=== PATIENT | female | born 1955 | race Caucasian/White ===

== ENCOUNTER 2016-10-08 21:01 | Emergency (ER) | payer MEDICARE, OTHER ==
[~2016-10-08 21:01] MED LIST: AUGMENTIN875 MG PO; DOXYCYCLINE HY100 M2 PO; IBUPROFEN800 MG PO; KLONOPIN2 MG PO; NITROQUIK SL0.4 MG PO; PAXIL20 MG PO; PHENERGAN25 M1 PO; PRAVACHOL40 MG PO; PROTONIX40 MG PO; VITAMIN B-12500 MCG PO; VITAMIN D250000 UNIT PO; WELLBUTRIN XL300 MG PO; ZESTRIL5 MG PO
[2016-10-08 21:51] LABS: BILIRUBIN NEGATIVE (NEGATIVE); BLOOD 3+ Ery/uL (NEGATIVE); CLARITY CLEAR (CLEAR); COLOR YELLOW (YELLOW); GLUCOSE (U) NORMAL (NORMAL); KETONE (U) NEGATIVE (NEGATIVE); LEUKOCYTES 3+ Leu/uL (NEGATIVE); NITRITE POSITIVE (NEGATIVE); PROTEIN 2+ mg/dL (NEGATIVE); UROBILINOGEN 0.2 mg/dL (0.2-1.0)
[2016-10-08 21:56] LABS: BACTERIA 2+
== END 2016-10-08 23:20 | disposition home or self-care (01) ==
LOC: FER 21:01
PROVIDERS: Nurse Practitioner
DX: N39.0 Urinary tract infection, site not specified (principal); R31.9 Hematuria, unspecified; I10 Essential (primary) hypertension; Z88.2 Allergy status to sulfonamides; Z88.5 Allergy status to narcotic agent; Z88.6 Allergy status to analgesic agent; Z88.8 Allergy status to other drugs, medicaments and biological substances; Z87.440 Personal history of urinary (tract) infections; Z90.49 Acquired absence of other specified parts of digestive tract; Z90.710 Acquired absence of both cervix and uterus; Z79.899 Other long term (current) drug therapy
CPT/HCPCS: 81001; 87076; 87088; 87186; J1885

== ENCOUNTER 2020-09-14 01:46 | Day surgery (SDCO) | payer MEDICARE, OTHER ==
[~2020-09-14] VITALS: Ht 165.1 cm; Wt 108.5 kg
[~2020-09-14 01:46] MED LIST changes: +AZITHROMYCIN250 MG PO; +BROMFED DM COU473 ML PO; +CYCLOBENZAPRINE10 MG PO; +IBUPROFEN400 M1 PO; +LOSARTAN POTASS50 MG PO; +PAROXETINE 20MG20 MG PO; +PRAVASTATIN SOD40 MG PO; +PREDNISONE 20MG20 MG PO; +PROMETHAZINE-D118 ML PO; +SPIRIVA18 MCG INH; +ULTRA-LIGHT RO1 EACH XX
[2020-09-14 02:34] LABS: BILIRUBIN NEGATIVE (NEGATIVE); BLOOD 1+ Ery/uL (NEGATIVE); CLARITY CLEAR (CLEAR); COLOR YELLOW (YELLOW); GLUCOSE (U) NORMAL (NORMAL); LEUKOCYTES NEGATIVE Leu/uL (NEGATIVE); NITRITE NEGATIVE (NEGATIVE); PROTEIN TRACE (LOW) mg/dL (NEGATIVE); SPECIFIC GRAVITY 1.015 (1.001-1.030); UROBILINOGEN 0.2 mg/dL (0.2-1.0); pH 7.5 (5.0-9.0)
[2020-09-14 02:39] LABS: PROTHROMBIN TIME 12.5 SECONDS (11.4-13.6); PTT 29.2 SECONDS (22.2-34.7)
[2020-09-14 02:40] LABS: D-DIMER 0.6 ug/mLFEU (0.00-0.41)
[2020-09-14 02:42] LABS: BACTERIA TRACE
[2020-09-14 02:53] LABS: ALBUMIN 3.5 g/dL (3.4-5.0); BILIRUBIN - TOTAL 0.3 mg/dL (0.2-1.0); BUN/CREAT RATIO (CALC) 12.8 RATIO; CREATININE 0.78 mg/dL (0.51-0.95); FT4 (FREE T4) 0.8 ng/dL (0.76-1.46); GLOBULIN (CALCULATION) 3.9 g/dL; POTASSIUM 4.1 mmol/L (3.5-5.1); TOTAL PROTEIN 7.4 g/dL (6.4-8.2)
[2020-09-14 02:54] LABS: BASOPHIL 0.2 % (0-2); EOSINOPHIL 0.1 % (0-5); HCT 36.9 % (37.0-47.0); HGB 12.2 g/dl (12.5-16.0); LYMPHOCYTE 10.4 % (15-48); MCH 29.1 pg (25.0-31.0); MCHC 33.1 g/dL (32.0-36.0); MCV 88.1 fL (78.0-100.0); MONOCYTE 3.5 % (0-12); MPV 10.5 fL (6.0-9.5); NEUTROPHIL 84.9 % (41-80); NRBC 0; PLT 290 K/uL (150-400); RBC 4.19 M/uL (4.20-5.40); RDW 12.9 % (11.5-14.0); WBC 12.1 K/uL (4.0-10.5)
[2020-09-14 02:55] LABS: PRO-BNP 122 pg/mL (<125)
[2020-09-14 06:11] LABS: CORONAVIRUS 2019 SARS-COV-2 NEGATIVE (NEGATIVE); INFLUENZA A NAA NEGATIVE (NEGATIVE)
[2020-09-14] MEDS ORDERED: COZAAR50 MG PO (06:42)
[2020-09-14] MEDS ORDERED: NORVASC5 MG PO (06:42)
[2020-09-14] MEDS ORDERED: ARICEPT 5MG TABL5 MG PO (06:44)
[2020-09-14] MEDS ORDERED: ANORO ELLIPTA1 EACH INH (06:44)
[2020-09-14] MEDS ORDERED: CLONAZEPAM2 MG PO (06:46)
[2020-09-14] MEDS ORDERED: PRAVASTATIN SOD10 MG PO (06:47)
[2020-09-14] MEDS ORDERED: PROTONIX 40MG T40 MG PO (06:47)
[2020-09-14] MEDS ORDERED: SINGULAIR10 MG PO (06:48)
[2020-09-14] MEDS ORDERED: ZOLOFT50 MG PO (06:48)
[2020-09-14] MEDS ORDERED: WELLBUTRIN XL150 MG PO (06:48)
[2020-09-14] MEDS ORDERED: VENTOLIN HFA IN18 GM INH (06:49)
[2020-09-14] MEDS ORDERED: CENTRUM SILVER1 EAC1 PO (06:50)
[2020-09-14] MEDS ORDERED: VITAMIN D350 MC3 PO (06:52)
--- NOTE | 2020-09-15 00:11 | NUR ---
AT 2318 CARDIZEM DRIP STOPPED. PT HR 58 AND SINUS RHYTHM BP 109/58. MD ALIZA ELDER NOTIFIED OF VITAL SIGNS AND ORDERED TO STOP DRIP AT THIS TIME.
[2020-09-15 04:26] LABS: BASOPHIL 0.3 % (0-2); EOSINOPHIL 0 % (0-5); HCT 33.3 % (37.0-47.0); HGB 10.8 g/dl (12.5-16.0); LYMPHOCYTE 11.9 % (15-48); MCH 28.7 pg (25.0-31.0); MCHC 32.4 g/dL (32.0-36.0); MCV 88.6 fL (78.0-100.0); MONOCYTE 4.7 % (0-12); MPV 10.3 fL (6.0-9.5); NEUTROPHIL 82.3 % (41-80); NRBC 0; PLT 266 K/uL (150-400); RBC 3.76 M/uL (4.20-5.40); RDW 13.2 % (11.5-14.0); WBC 14.9 K/uL (4.0-10.5)
[2020-09-15 04:43] LABS: ALBUMIN 3.2 g/dL (3.4-5.0); BILIRUBIN - TOTAL 0.3 mg/dL (0.2-1.0); BUN/CREAT RATIO (CALC) 26.9 RATIO; CREATININE 0.67 mg/dL (0.51-0.95); GLOBULIN (CALCULATION) 3.4 g/dL; POTASSIUM 4.5 mmol/L (3.5-5.1); TOTAL PROTEIN 6.6 g/dL (6.4-8.2)
[2020-09-15 04:58] LABS: CKMB 1.4 ng/mL (0.0-3.6)
[2020-09-15] MEDS ORDERED: PREDNISONE 20MG20 MG PO (09:43)
[2020-09-15] MEDS ORDERED: LOPRESSOR25 MG PO (09:44)
[2020-09-15] MEDS ORDERED: ELIQUIS5 MG PO (09:44)
== END 2020-09-15 11:20 | disposition home or self-care (01) ==
LOC: FER 01:46 → FTCU 05:26
PROVIDERS: Emergency Medicine Emergency Medical Services; Nurse Practitioner; ADMIT Hospitalist
DX: I48.91 Unspecified atrial fibrillation (principal); J44.1 Chronic obstructive pulmonary disease with (acute) exacerbation; I10 Essential (primary) hypertension; G47.30 Sleep apnea, unspecified; E78.5 Hyperlipidemia, unspecified; F41.9 Anxiety disorder, unspecified; E03.9 Hypothyroidism, unspecified; M79.89 Other specified soft tissue disorders; Z99.89 Dependence on other enabling machines and devices; Z87.891 Personal history of nicotine dependence; Z91.041 Radiographic dye allergy status; Z88.5 Allergy status to narcotic agent; Z88.2 Allergy status to sulfonamides; Z88.6 Allergy status to analgesic agent; Z79.899 Other long term (current) drug therapy; Z20.822 Contact with and (suspected) exposure to COVID-19
CPT/HCPCS: 36415; 71045; 80053; 81001; 82553; 83036; 83735; 83880; 84439; 84443; 84484; 85025; 85379; 85610; 85730; 93005; 93970; 94010; 94640; 94762; G0378; J3475; J7512; U0002

== ENCOUNTER 2021-05-17 18:47 | Emergency (ER) | payer MEDICARE, OTHER ==
[~2021-05-17 18:47] MED LIST changes: +ANORO ELLIPTA1 EACH INH; +ARICEPT 5MG TABL5 MG PO; +CENTRUM SILVER1 EAC1 PO; +CLONAZEPAM2 MG PO; +COZAAR50 MG PO; +ELIQUIS5 MG PO; +LOPRESSOR25 MG PO; +NORVASC5 MG PO; +PRAVASTATIN SOD10 MG PO; +PROTONIX 40MG T40 MG PO; +SINGULAIR10 MG PO; +VENTOLIN HFA IN18 GM INH; +VITAMIN D350 MC3 PO; +WELLBUTRIN XL150 MG PO; +ZOLOFT50 MG PO
[2021-05-17 19:56] LABS: BASOPHIL 0.6 % (0-2); EOSINOPHIL 3.5 % (0-5); HCT 34.8 % (37.0-47.0); HGB 11.7 g/dl (12.5-16.0); LYMPHOCYTE 31.1 % (15-48); MCH 28.8 pg (25.0-31.0); MCHC 33.6 g/dL (32.0-36.0); MCV 85.7 fL (78.0-100.0); MONOCYTE 7.8 % (0-12); NEUTROPHIL 56.8 % (41-80); NRBC 0; PLT 306 K/uL (150-400); RBC 4.06 M/uL (4.20-5.40); RDW 13.4 % (11.5-14.0); WBC 10.5 K/uL (4.0-10.5)
[2021-05-17 20:08] LABS: INR 1.15 (0.9-1.2); PROTHROMBIN TIME 14.1 SECONDS (11.8-13.4); PTT 32.4 SECONDS (24.4-34.7)
[2021-05-17 20:30] LABS: ALBUMIN 3.5 g/dL (3.4-5.0); BILIRUBIN - TOTAL 0.3 mg/dL (0.2-1.0); BUN/CREAT RATIO (CALC) 18.4 RATIO; CREATININE 0.76 mg/dL (0.51-0.95); GLOBULIN (CALCULATION) 3.5 g/dL; POTASSIUM 3.2 mmol/L (3.5-5.1)
[2021-05-17 20:32] LABS: LACTIC ACID 1.7 mmol/L (0.4-1.9)
[2021-05-17 20:38] LABS: BILIRUBIN NEGATIVE (NEGATIVE); BLOOD 1+ Ery/uL (NEGATIVE); CLARITY CLEAR (CLEAR); COLOR YELLOW (YELLOW); GLUCOSE (U) NORMAL (NORMAL); LEUKOCYTES NEGATIVE Leu/uL (NEGATIVE); NITRITE NEGATIVE (NEGATIVE); PROTEIN NEGATIVE (NEGATIVE); UROBILINOGEN 0.2 mg/dL (0.2-1.0); pH 6.5 (5.0-9.0)
[2021-05-17 20:52] LABS: SQUAMOUS EPITHELIAL CELLS RARE
== END 2021-05-17 21:10 | disposition home or self-care (01) ==
LOC: FER 18:47
PROVIDERS: Emergency Medicine Emergency Medical Services
DX: K62.5 Hemorrhage of anus and rectum (principal); E87.6 Hypokalemia; R10.11 Right upper quadrant pain; J44.9 Chronic obstructive pulmonary disease, unspecified; I48.91 Unspecified atrial fibrillation; Z88.2 Allergy status to sulfonamides; Z88.5 Allergy status to narcotic agent; Z88.6 Allergy status to analgesic agent; Z91.041 Radiographic dye allergy status; Z79.01 Long term (current) use of anticoagulants
CPT/HCPCS: 36415; 80053; 81001; 82150; 83605; 83690; 84145; 85025; 85610; 85730; 86850; 86900; 86901; 93005; C9113